=== PATIENT | male | born 1980 ===

== ENCOUNTER 2017-04-20 05:51 | Day surgery (SDC) | payer BC ==
[2017-03-02 10:16] VITALS: BMI 28.4
[2017-04-20] MEDS ORDERED: Lidocaine 1% Inj (20ml) ONE (07:42)
[2017-04-20] MEDS ORDERED: ceFAZolin IV 2 gm in Dextrose 2 GM/50 ML BAG IVPB ONE (07:42)
[2017-04-20] MEDS ORDERED: HEPARIN-NS 5,000 UNITS/500 ML 5,000 UNIT/500 ML BAG IV ONE (07:42)
[2017-04-20] MEDS ORDERED: Midazolam 2 MG/2 ML VIAL ONE (07:45)
[2017-04-20] MEDS ORDERED: Propofol 10 mg/ml Inj (20 ML) ONE (07:46)
[2017-04-20] MEDS ORDERED: Sodium Chloride 0.9% 1,000 ML IV ONE (07:50)
[2017-04-20] MEDS ORDERED: HYDROmorphone 0.5 mg/0.5 ml ISec IVP PRN (10:35)
--- NOTE | 2017-04-20 10:44 | PCM.SURG1 ---
Surgeon's Initial Post Op Note - Surgeon's Notes Surgeon: Zaida Placing Judge: PGY4 Type of Anesthesia: IV Sedation, Local Pre-Operative Diagnosis: ESRD Operative Findings: palpable thrill and distal pulse after anastamosis Post-Operative Diagnosis: ESRD Operation Performed: Left AVF creation Specimen/Specimens Removed: N/A Estimated Blood Loss: EBL {In ML}: 250 Blood Products Given: N/A Drains Used: No Drains Post-Op Condition: Good Date of Surgery/Procedure: 04/20/17 Time of Surgery/Procedure: 08:00
[2017-04-20] MEDS ORDERED: Oxycodone/Acetaminophen 5/325 mg Tab PO ONE (10:47)
[2017-04-20] MEDS ORDERED: Oxycodone/Acetaminophen 5/325 mg Tab ONE (11:57)
[2017-04-20 12:06] VITALS: PULSE 83; RESP 18
[2017-04-20 14:00] VITALS: BP 127/74; TEMP 98.1; O2SAT 100
--- NOTE | 2017-04-20 18:04 | OP ---
PROCEDURE DATE: 04/20/2017 PREOPERATIVE DIAGNOSIS: Renal failure. POSTOPERATIVE DIAGNOSIS: Renal failure. PROCEDURE CARRIED OUT: Brachiobasilic fistula, left elbow. SURGEON: Lalito Cerda Jr., MD. ADMINISTRATIVE SUPPORT SPECIALIST: Dr. Dorado. ANESTHESIA ADMINISTERED BY: Mr. Parrish. INDICATIONS: Patient is a middle-aged man, on dialysis for a number of months. Now for creation of initial fistula. OPERATIVE FINDINGS: Initial ultrasound in the room as well as his preoperative vein mapping did not demonstrate a good cephalic vein in his arm for use as a fistula. The basilic vein, however, was of adequate size. So, we created an end-to-side spatulated anastomosis between the basilic vein at the elbow and the adjacent brachial artery. At the end of the procedure, there was excellent flow to the fistula and a pulse at the wrist. The only technical problem encountered in the operation was bleeding. Everything we touched, bled; every small blood vessel bled. At one point, I actually considered abandoning the operation due to blood loss of approximately 75 mL in a 1-inch incision. Nonetheless, this was eventually controlled. We gave heparin. We carried out the anastomosis using loupe magnification and heparin anticoagulation. The wounds were then closed at the end with layered closure and 5-nylon sutures on the skin. Blood loss was 150 mL or more. The operation carried out is brachiobasilic fistula, left elbow. This most likely will require mobilization and superficialization in the future. Lalito Cerda Jr., MD cc: Mika Medeiros MD
== END 2017-04-20 13:00 | disposition home or self-care (01) ==
LOC: C.SDS 05:51
PROVIDERS: ATTEND Surgery Vascular Surgery
DX: N18.6 End stage renal disease (principal); Z99.2 Dependence on renal dialysis
CPT/HCPCS: 36415; 36821; 84132; J0690; J1644; J2250; J2704; J3010; J7030; J7040

== ENCOUNTER 2017-06-29 07:53 | Day surgery (SDC) | payer BC ==
[2017-03-02 10:16] VITALS: BMI 28.4
[2017-06-29] MEDS ORDERED: Propofol 10 mg/ml Inj (20 ML) ONE ×2 (09:12→09:31)
[2017-06-29] MEDS ORDERED: Midazolam 2 MG/2 ML VIAL ONE (09:12)
[2017-06-29] MEDS ORDERED: ceFAZolin 1 gm in NS 2 GM/200 ML BAG IVPB ONE (09:16)
[2017-06-29] MEDS ORDERED: HEPARIN-NS 5,000 UNITS/500 ML 5,000 UNIT/500 ML BAG IV ONE (09:53)
[2017-06-29] MEDS ORDERED: Iohexol 240 (50 ml) ONE (10:07)
[2017-06-29] MEDS ORDERED: Oxycodone/Acetaminophen 5/325 mg Tab PO PRN (11:05)
[2017-06-29] MEDS ORDERED: HYDROmorphone 0.5 mg/0.5 ml ISec IVP PRN (11:05)
--- NOTE | 2017-06-29 11:05 | PCM.SURG1 ---
Surgeon's Initial Post Op Note - Surgeon's Notes Surgeon: Dr Cerda Liquid Yeast Supervisor: Dr Hernandez PGY3 Type of Anesthesia: General Endo Pre-Operative Diagnosis: renal failure Operative Findings: see report. no anastomotic stricture Post-Operative Diagnosis: as above Operation Performed: left brachiocephalic avf transposition. intraoperative angiography Specimen/Specimens Removed: none Estimated Blood Loss: EBL {In ML}: 25 Blood Products Given: N/A Drains Used: No Drains Post-Op Condition: Good Date of Surgery/Procedure: 06/29/17 Time of Surgery/Procedure: 11:05
[2017-06-29 13:06] VITALS: RESP 16
[2017-06-29 15:04] VITALS: BP 142/72; PULSE 72; TEMP 98.9; O2SAT 97
--- NOTE | 2017-06-29 17:31 | RAD ---
PROCEDURE: HISTORY: As Above COMPARISON: None TECHNIQUE: Total fluoroscopic time utilized during the procedure: 10.6 seconds. Total dose 0.43 mGy cm squared FINDINGS: Submitted images from the current procedure: 2 (1 blank image ) Please refer to the physician's notes performing the procedure. IMPRESSION: Less than 1 hour fluoroscopic time utilized during performance of the procedure
--- NOTE | 2017-06-29 22:20 | OP ---
PROCEDURE DATE: 06/29/2017 PREOPERATIVE DIAGNOSIS: Immature fistula, left arm. POSTOPERATIVE DIAGNOSIS: Immature fistula, left arm. PROCEDURE CARRIED OUT: Revision of AV fistula, basilic vein transposition and intraoperative arteriogram. SURGEON: Lalito Cerda Jr., MD ROLL TRUCKER: Dr. Hernandez. ANESTHESIOLOGIST: Meli Granado CRNA. INDICATIONS: The patient is a young man with renal insufficiency, had creation of basilic vein fistula of his arm which is too deep for access. Preoperative measurements demonstrated it is approximately 9 mm in diameter. Also, our preoperative imaging suggested that he had a perianastomatic stenosis with high velocities measured in this area. FINDINGS: The vein was approximately 9 mm in diameter, it was of excellent size and caliber. An intraoperative arteriogram was taken to demonstrate the arterial anastomosis which did not show any evidence of perianastomatic stenosis. The fistula was widely patent, and the artery had no evidence of any narrowing. Subsequent images of the veins in the superior part of the arm did not reveal any other abnormalities and were widely patent. With ultrasound, we marked the vein and marked tributaries. We then dissected the vein out from the elbow to the axilla. After this had been mobilized completely, we then carried out the angiogram of the proximal portion and the distal portion without any significant findings. We then brought the graft into the subcutaneous position and closed the skin on top of it. Blood loss for the procedure was less than 50 mL and operation carried out was revision of left arm fistula with basilic vein transposition fistula and intraoperative fistulogram. Lalito Cerda Jr., MD
== END 2017-06-29 14:57 | disposition home or self-care (01) ==
LOC: C.SDS 07:53
PROVIDERS: ATTEND Surgery Vascular Surgery
DX: N18.6 End stage renal disease (principal); I12.0 Hypertensive chronic kidney disease with stage 5 chronic kidney disease or end stage renal disease; E78.5 Hyperlipidemia, unspecified
CPT/HCPCS: 36415; 36832; 84132; J0690; J1170; J2250; J2704; J3010